=== PATIENT | female | born 2000 | race Caucasian/White ===

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

== ENCOUNTER 2022-06-28 10:00 | Emergency (ER) | payer OTHER, SELFPAY ==
[2022-06-28 10:06] VITALS: BP 128/74; PULSE 95; RESP 16; TEMP 36.2; O2SAT 99
--- NOTE | 2022-06-28 10:06 | ED.EAR ---
HPI - Ear Problem General Chief complaint: Ear Stated complaint: rt ear infection, dizziness Time Seen by Provider: 06/28/22 10:06 Source: patient and RN notes reviewed History of Present Illness HPI Narrative: Patient is a 22-year-old female, transitioning to male complaints of ear pain the . Patient's other doctor on the and was given Augmentin, steroids and nasal spray. Patient is the physician advised to go to a local urgent evaluation. Denies any recent fevers. States hearing. No other acute complaints. Acute distress noted. Patient aware of the plan of care Some parts of this dictation were generated by voice recognition software and may contain typographical and/or grammatical inaccuracies. Related Data Home Medications Medication Instructions Recorded Confirmed lamotrigine 100 mg tablet 200 mg PO DAILY 06/04/21 06/28/22 sertraline 100 mg tablet 200 mg PO DAILY 06/04/21 06/28/22 testosterone cypionate 200 mg/mL 200 mg IM .bi-weekly 06/04/21 06/28/22 intramuscular oil Allergies Allergy/AdvReac Type Severity Reaction Status Date / Time amphetamine AdvReac Severe seizures Verified 06/28/22 10:03 [From Adderall XR] dextroamphetamine AdvReac Severe seizures Verified 06/28/22 10:03 [From Adderall XR] Review of Systems Review of Systems: CONSTITUTIONAL: Denies fever, chills, or sweats. EYES: Denies visual changes, redness, or discharge. ENT: Denies rhinorrhea, congestion, sore throat. Reports of right ear pain with hearing loss CARDIOVASCULAR: Denies chest pain, palpitations, or edema. RESPIRATORY: Denies cough or dyspnea. GASTROINTESTINAL: Denies abdominal pain, nausea, vomiting, or diarrhea. GENITOURINARY: Denies dysuria or hematuria. SKIN: Denies rash or itching. MUSCULOSKELETAL: Denies back pain, joint pain, or myalgia. NEUROLOGIC: Denies headache, numbness, or weakness. All other systems reviewed are negative, except as documented in HPI. [facility] Past Medical History Medical History (Updated 06/28/22 @ 10:12 by HORACIO Cueto) Attention deficit disorder Exercise induced bronchospasm Major depressive disorder, recurrent, moderate MDD (major depressive disorder), single episode Family History Family History Father Diabetes mellitus Hypertension Mixed hyperlipidemia Sibling Patient's brother is in good health Social History Social History Social History: Single Smoking status: Never smoker Second hand tobacco smoke exposure: No Alcohol intake: never Substance use: never Substance use type: does not use Gender identity (if verbalized by the patient): Transgender Male Sexual Orientation (if Verbalized by the Patient): Lesbian, Dowling, or Homosexual Comments At the time of my signature, I reviewed and agree with the nursing past medical, surgical, social, and family history. There is no relevant family history pertinent to the patient complaint. Exam Narrative: GENERAL: This is a well-nourished, well-developed patient, in no apparent distress. HEAD: normocephalic, atraumatic. EYES: PERRL. Sclera clear/white. Vision is grossly intact. EARS: External ears normal, auditory canals clear and without drainage, mild effusion to the right TM. Bilateral TMs normal without perforation. Hearing grossly intact. NOSE: External nose normal with no obvious nasal discharge, nares without redness, no rhinorrhea. THROAT: Mucous membranes moist, posterior pharynx clear. NECK: Neck supple SKIN: warm, intact with no suspicious lesions or rash, good texture and turgor. NEURO: awake, alert, and oriented to person, place and time. There were no obvious focal neurologic abnormalities. EXTREMITIES: No clubbing, cyanosis, or edema. Course Course Level of Care: Express Care Visit Vital Signs Vital signs: Vital Signs Temperature 97.1 F L 06/28/22 10:06 Pulse Rate
== END 2022-06-28 10:20 | disposition home or self-care (01) ==
PROVIDERS: Emergency Provider Nurse Practitioner Family; PCP Family Medicine
DX: H92.01 Otalgia, right ear (principal); F32.9 Major depressive disorder, single episode, unspecified; J45.990 Exercise induced bronchospasm
CPT/HCPCS: 99213; G0463

== ENCOUNTER 2022-10-12 13:51 | Emergency (ER) | payer BC, SELFPAY ==
--- NOTE | ~2022-10-12 | CT_ITS ---
EXAMINATION: CT soft tissue neck w con DATE: 10/12/2022 15:32 INDICATION: Peritonsillar abscess. TECHNIQUE: Computed tomography (CT) of the neck was performed with 75 mL Omnipaque-350 intravenous co ntrast. Automated exposure control and iterative reconstruction technique were employed. The dose-elidia gth product was 521.95 mGy-cm. COMPARISON: None FINDINGS: The thyroid gland is unremarkable. The submandibular and parotid glands are symmetric. Bilateral upper anterior cervical chain lymphadenopathy, with heterogeneous enhancement. Enlarged heterogeneous ly enhancing adenoids. Enlarged heterogeneously enhancing bilateral palatine tonsils, without rim enh ancing fluid collection. The superior mediastinum is unremarkable. The airway is unremarkable. P arapharyngeal and pre-glottic fat planes are preserved. Normal enhancing neck arteries. The orbits are unremarkable. Visualized sinuses and mastoid air cells are well aerated. Lung parenchyma is clear. Normal bones. IMPRESSION: 1. Adenoid and bilateral pontine tonsillar enlargement, with heterogeneous enhancement. 2. Upper anterior cervical chain lymphadenopathy, with heterogeneous enhancement. 3. No defined rim-enhancing tonsillar fluid collection detected at this time. Reviewed, dictated and finalized at location K. IMPRESSION: 1. Adenoid and bilateral pontine tonsillar enlargement, with heterogeneous enha ncement. 2. Upper anterior cervical chain lymphadenopathy, with heterogeneous enhancemen t. 3. No defined rim-enhancing tonsillar fluid collection detected at this time.
[2022-10-12 14:01] VITALS: BP 125/79; PULSE 120; RESP 20; TEMP 37; O2SAT 100
[2022-10-12 14:41] LABS: Basophils Absolute Auto 0.1 K/mm3 (0.0-0.1); Basophils Percent Auto 0.3 % (0.2-1.2); Eosinophils Percent Auto 0.2 % (0-4.4); Hematocrit 42.7 % (42.0-52.0); Hemoglobin 14.5 g/dL (14.0-18.0); Immature Granulocyte Absolute 0.11 K/mm3 (0.00-0.031); Immature Granulocyte Percent A 0.6 % (0-0.5); Lymphocytes Absolute Auto 0.78 K/mm3 (0.9-3.2); Lymphocytes Percent Auto 4.2 % (18.3-44.2); Mean Corpuscular Hemoglobin 30.1 pg (26-34); Mean Corpuscular Volume 88.6 fl (80-100); Mean Platelet Volume 8.8 fl (7.4-10.4); Monocytes Absolute Auto 1.3 K/mm3 (0.1-0.6); Monocytes Percent Auto 6.8 % (2.6-8.5); Neutrophils Absolute Auto 16.2 K/mm3 (1.3-6.7); Neutrophils Percent Auto 87.9 % (45.5-73.1); Platelet Count Result 230 k/mm3 (150-375); Red Blood Count 4.82 M/mm3 (4.6-6.20); White Blood Count 18.4 K/mm3 (4.5-10.0)
--- NOTE | 2022-10-12 14:43 | ED.DENTAL ---
HPI - Dental/Oral General Chief complaint: Dental/Oral Stated complaint: right side tonsillar abscess Time Seen by Provider: 10/12/22 14:17 Source: patient Mode of arrival: ambulatory Limitations: no limitations History of Present Illness HPI Narrative: This is a 22 year old female to male transgender person who presents to the ER for possible peritonsillar abscess. Was treated with course of Augmentin for strep throat which he has finished. Reports yesterday he had return of symptoms. He was seen by his PCP again today and sent for further evaluation. Reports worsening swelling especially on the right side of his throat which is making it difficult for him to swallow. Denies fever. Related Data Home Medications Medication Instructions Recorded Confirmed lamotrigine 100 mg tablet 200 mg PO DAILY 06/04/21 09/27/22 sertraline 100 mg tablet 200 mg PO DAILY 06/04/21 09/27/22 testosterone cypionate 200 mg/mL 200 mg IM .bi-weekly 06/04/21 09/27/22 intramuscular oil Allergies Allergy/AdvReac Type Severity Reaction Status Date / Time amphetamine AdvReac Severe seizures Verified 10/12/22 13:52 [From Adderall XR] dextroamphetamine AdvReac Severe seizures Verified 10/12/22 13:52 [From Adderall XR] Review of Systems Review of Systems: CONSTITUTIONAL: Denies fever ENT: Reports sore throat RESPIRATORY: Denies cough All systems reviewed & are unremarkable except as noted in HPI and below PMFSH Past Medical History Medical History (Updated 10/12/22 @ 16:20 by Anna Smith PA-C) Attention deficit disorder Exercise induced bronchospasm Major depressive disorder, recurrent, moderate MDD (major depressive disorder), single episode Family History Family History Father Diabetes mellitus Hypertension Mixed hyperlipidemia Sibling Patient's brother is in good health Social History Social History Social History: Single Smoking status: Never smoker Second hand tobacco smoke exposure: No Alcohol intake: never Substance use: never Substance use type: does not use Living arrangements: with family Occupation/Education: occupation Gender identity (if verbalized by the patient): Transgender Male Sexual Orientation (if Verbalized by the Patient): Lesbian, Dowling, or Homosexual Exam Narrative: GENERAL: Well-appearing, well-nourished, and in no acute distress. HEAD: Normocephalic, atraumatic. EYES: EOMI. ENT: Nares clear, no rhinorrhea or epistaxis. Mucous membranes moist. Oropharynx without tonsillar hypertrophy exudate or other lesions. Bilateral TMs pearly garsia non-bulging. Bilateral moderate tonsillar edema and erythema (R>L), uvula is mildly deviated. No trismus NECK: Supple. Tender anterior cervical adenopathy CHEST: Clear to auscultation. No respiratory distress. No wheezes rales or rhonchi HEART: Regular rate and rhythm. No murmur heard. Normal peripheral pulses. EXTREMITIES: Normal range of motion. No edema. SKIN: Warm, dry, no rash. NEURO: No focal deficits. Alert and oriented x3. PSYCH: Normal mood and affect Course Course Emergency Course: Patient and family updated on workup and agree with plan of care Vital Signs Vital signs: Vital Signs Temperature 98.6 F 10/12/22 14:01 Pulse Rate 120 H 10/12/22 14:01 Respiratory Rate 20 10/12/22 14:01 Blood Pressure 125/79 10/12/22 14:01 Pulse Oximetry 100 10/12/22 14:01 Oxygen Delivery Room Air 10/12/22 14:01 Temperature 98.6 F 10/12/22 14:01 Pulse Rate 120 H 10/12/22 14:01 Respiratory Rate 20 10/12/22 14:01 Blood Pressure 125/79 10/12/22 14:01 Pulse Oximetry 100 10/12/22 14:01 Oxygen Delivery Room Air 10/12/22 14:01 MDM - Dental/Oral MDM Narrative Medical decision making narrative: Patient presents to the emergency department for concern for possible peritonsillar abscess. Tach
[2022-10-12 14:54] LABS: Anion Gap 7 mmol/L (8-16); Blood Urea Nitrogen 10 mg/dL (9-20); Calcium 9.1 mg/dL (8.4-10.2); Carbon Dioxide 28 mmol/L (22-30); Chloride 104 mmol/L (98-107); Estimated CRCL calculation 150 ml/min; Estimated Glomerular Filt Rate > 60; Glucose 111 mg/dL (65-110); Sodium 139 mmol/L (137-145)
[2022-10-12] MEDS: SODIUM CHLORIDE 0.9% IV 500 ML 999 ML IV CONT (15:17)
[2022-10-12] MEDS: KETOROLAC 15 MG/ML VIAL (*BKC) IV PUSH (15:18)
[2022-10-12] MEDS: CLINDAMYCIN HCL 150 MG CAP 300 MG PO (16:00)
[2022-10-12 16:25] VITALS: BP 109/66; PULSE 100; RESP 16; O2SAT 96
== END 2022-10-12 16:35 | disposition home or self-care (01) ==
PROVIDERS: Emergency Provider Physician Assistant; PCP Family Medicine
DX: J03.90 Acute tonsillitis, unspecified (principal); F32.A Depression, unspecified
CPT/HCPCS: 36415; 70491; 80048; 85025; 96361; 96374; 96375; 99284; A9270; J1100; J1885; J7040; Q9967

== ENCOUNTER 2022-11-03 15:14 | Outpatient (CLI) | payer BC, SELFPAY ==
--- NOTE | ~2022-11-03 | XR_ITS ---
EXAMINATION: XR chest 2V 11/03/2022 15:37 INDICATION: Pleurodynia PROCEDURE: 2 view chest COMPARISON: No prior studies for comparison. FINDINGS: The lungs are clear. The cardiomediastinal silhouette is within normal limits. There are no pleural effusions. There is no pneumothorax suspected. IMPRESSION: 1: NO ACUTE CARDIOPULMONARY DISEASE. Reviewed, dictated and finalized at location L.
== END 2022-11-03 15:15 | disposition home or self-care (01) ==
LOC: ANHIMG 15:23
PROVIDERS: PCP Family Medicine; Visit Provider Physician Assistant
DX: R07.81 Pleurodynia (principal)
CPT/HCPCS: 71046

== ENCOUNTER 2022-11-15 00:39 | Day surgery (SDC) | payer BC, SELFPAY ==
[2022-11-08 11:50] VITALS: BMI 24.0
--- NOTE | 2022-11-08 11:54 | PC.NURSE ---
Report to the Outpatient Waiting Room, entrance under the green pavilion located off [facility], at time 1315 on date 11/15/22. Planned Procedure Time: 1515. Time changes happen often and if your time is changed the preop area will call you the afternoon before. - You and your visitor will be asked to self-screen and do not enter if you have any COVID symptoms. - A mask is optional within the hospital at this time. Patients may have clear liquids (water, carbonated beverages, clear teas, apple juice) until 3 hours prior to surgery with a maximum of 20 ounces. - No food from midnight until time of surgery Take the following medications with a SIP of water the morning of surgery: INHALER IF NEEDED, CLINDAMYCIN, LAMOTRIGINE, SERTRALINE DO NOT STOP ANY OF YOUR OTHER PRESCRIPTION MEDICATIONS PRIOR TO SURGERY EXCEPT THE FOLLOWING Medications to discontinue per physician: IBUPROFEN Date to take last dose: PER DR. BYNUM Please no make-up, nail vincentian, hairspray, perfume, deodorant, or body powder the day of surgery. No jewelry (including any body piercings) or valuables the day of surgery, leave them at home. Please take a shower or bath the night before, or the morning of, surgery with an antibacterial soap. Wear comfortable, loose fitting clothing. - Jewelry must be removed prior to entering the operating room. Rings and piercings that are not removed may be cut off. - The hospital will not accept responsibility for valuables. - Please leave all valuables, including medications, at home the day of surgery. If you are going home after surgery, a licensed interstate bus driver must drive you home. - NO public transportation without another adult if you receive anesthesia. - We recommend that an adult stay with you for 24 hours following discharge. - We also recommend that you do not drive, make important decision, drink alcoholic beverages, or take any drugs that were not prescribed by your health care provider for at least 24 hours after your discharge time. Follow any additional instructions given to you from your surgeon. If you or anyone in your household have experienced Covid symptoms in the past week, please notify your surgeon or the nurse liaison at the phone number below for possible testing. Telephone instructions given to PT - KINDRA VERGARA and asked if any additional questions and then verbalized understanding. Patient advised to call surgeon office or pre surgery nurse liaison [phone] if any additional questions.
--- NOTE | 2022-11-14 13:02 | WPDANESEPPF ---
Anes - Initial Pre Proc Eval Procedure: Operation Date: 11/15/22 14:15 Proposed Procedures p Tonsillectomy And Adenoidectomy - Narendra Floyd MD Date/Time: 11/14/22 13:02 Surgeon: Narendra Floyd MD Pre Op Diagnosis: hypertrophic tonsils and adenoids Patient Data Age: 22 Gender: F Height: 1.78 m Weight: 76.2 kg Allergies Allergy/AdvReac Type Severity Reaction Status Date / Time amphetamine AdvReac Severe seizures Verified 11/15/22 12:45 [From Adderall XR] dextroamphetamine AdvReac Severe seizures Verified 11/15/22 12:45 [From Adderall XR] Home Medications Medication Instructions Recorded Confirmed Type lamotrigine 100 mg tablet 200 mg PO DAILY 06/04/21 11/08/22 History sertraline 100 mg tablet 200 mg PO DAILY 06/04/21 11/15/22 History testosterone cypionate 200 mg/mL 200 mg IM .bi-weekly 06/04/21 11/08/22 History intramuscular oil albuterol sulfate 90 mcg/actuation 1 puff inhalation Q4H PRN 09/01/21 11/08/22 Rx aerosol inhaler (ProAir HFA) shortness of breath or wheezing #8.5 grams clindamycin HCl 300 mg capsule 300 mg PO Q8H 10 days #30 caps 11/03/22 11/08/22 Rx ibuprofen 400 mg tablet 400 mg PO Q6H PRN Pain 11/08/22 11/15/22 History Patient hx anesthesia problems: none Family hx anesthesia problems: none Results Review: All pre-operative results and documents have been reviewed as part of the pre-operative evaluation. [facility] Past Medical History Medical History (Updated 11/14/22 @ 13:03 by Max Small DO) Attention deficit disorder Exercise induced bronchospasm Major depressive disorder, recurrent, moderate MDD (major depressive disorder), single episode Seizure last in october 2022 Tachycardia Family History Family History Father Diabetes mellitus Hypertension Mixed hyperlipidemia Sibling Patient's brother is in good health Social History Social History Social History: Single Smoking status: Never smoker Second hand tobacco smoke exposure: No Alcohol intake: never Substance use: never Substance use type: does not use Lack of Transportation: No Lack of Food: Never True Current Housing: I Have Housing Concerned About Future Housing: No Difficulty Paying Gas/Electric Bills: No Difficulty Paying for Meds: No Currently Unemployed: No Education: High School Diploma/GED Difficulty w/ Childcare or Family Care: No Living arrangements: with family Occupation/Education: occupation Gender identity (if verbalized by the patient): Transgender Male Sexual Orientation (if Verbalized by the Patient): Lesbian, Dowling, or Homosexual Spiritual care concerns: No Anes - Eval Final PreProcedure Day of Procedure 11/14/22 13:02 Patient weight: normal Heart: regular rate and rhythm Lungs: clear to auscultation and normal air movement Airway: Mallampati scale class II Neurological: alert and oriented Last oral intake: >/= 8 hours ASA classification: III Emergent: no Anesthetic plan: proceed Anesthesia type and monitoring: general ETT and standard monitoring Results Review: All pre-operative results and documents have been reviewed as part of the pre-operative evaluation. Informed Consent: The patient's anesthetic plan and its attendant risks and benefits were discussed with the patient/family/POA. Questions were solicited and answers provided to the satisfaction of the patient/family/POA.
--- NOTE | 2022-11-14 19:25 | PM.IMHP ---
H&P: HPI History of Present Illness Date/Time: 11/14/22 19:25 Chief Complaint: recurrent tonsillitis sleep disordered breathing tonsillar hypertrophy adenoid hypertrophy snoring Narrative: planned surgical procedure Review of Systems Review of Systems: All systems reviewed & are unremarkable except as noted in HPI and below PMFSH Past Medical History Medical History (Updated 11/14/22 @ 13:03 by Max Small DO) Attention deficit disorder Exercise induced bronchospasm Major depressive disorder, recurrent, moderate MDD (major depressive disorder), single episode Seizure last in october 2022 Tachycardia Family History Family History Father Diabetes mellitus Hypertension Mixed hyperlipidemia Sibling Patient's brother is in good health Social History Social History Social History: Single Smoking status: Never smoker Second hand tobacco smoke exposure: No Alcohol intake: never Substance use: never Substance use type: does not use Lack of Transportation: No Lack of Food: Never True Current Housing: I Have Housing Concerned About Future Housing: No Difficulty Paying Gas/Electric Bills: No Difficulty Paying for Meds: No Currently Unemployed: No Education: High School Diploma/GED Difficulty w/ Childcare or Family Care: No Living arrangements: with family Occupation/Education: occupation Gender identity (if verbalized by the patient): Transgender Male Sexual Orientation (if Verbalized by the Patient): Lesbian, Dowling, or Homosexual Spiritual care concerns: No Meds Home Medications and Allergies Home Medications Medication Instructions Recorded Confirmed Type lamotrigine 100 mg tablet 200 mg PO DAILY 06/04/21 11/08/22 History sertraline 100 mg tablet 200 mg PO DAILY 06/04/21 11/08/22 History testosterone cypionate 200 mg/mL 200 mg IM .bi-weekly 06/04/21 11/08/22 History intramuscular oil albuterol sulfate 90 mcg/actuation 1 puff inhalation Q4H PRN 09/01/21 11/08/22 Rx aerosol inhaler (ProAir HFA) shortness of breath or wheezing #8.5 grams clindamycin HCl 300 mg capsule 300 mg PO Q8H 10 days #30 caps 11/03/22 11/08/22 Rx ibuprofen 400 mg tablet 400 mg PO Q6H PRN Pain 11/08/22 11/08/22 History Allergies Allergy/AdvReac Type Severity Reaction Status Date / Time amphetamine AdvReac Severe seizures Verified 11/08/22 11:48 [From Adderall XR] dextroamphetamine AdvReac Severe seizures Verified 11/08/22 11:48 [From Adderall XR] Exam Narrative: large tonsils large adenoids Assessment and Plan Assessment and plan (1) Adenoid hypertrophy: Code(s): J35.2 - Hypertrophy of adenoids Status: Acute Assessment and Plan: Plan tonsillectomy adenoidectomy risks discussed including change in swallow need for further procedures damage to any structure above the clavicles bleeding infection postoperative bleeding 3-5% need for time off work need for time off school need for narcotic use risks of narcotic use damage to any structure anesthesia above a clavicles during intubation maintenance of anesthesia.? Damage to dentition change in taste change in swallow abnormal sensations for months.? Patient voiced understanding of these risks and agreed. (2) Tonsillar hypertrophy: Code(s): J35.1 - Hypertrophy of tonsils Status: Acute (3) Recurrent tonsillitis: Code(s): J03.91 - Acute recurrent tonsillitis, unspecified Status: Acute (4) Snoring: Code(s): R06.83 - Snoring Status: Acute
[2022-11-15] VITALS (7 sets, daily range): BP systolic 102–126; BP diastolic 57–87; PULSE 74–95; RESP 12–17; TEMP 36.2–36.7; O2SAT 98–100; BMI 22.9
--- NOTE | 2022-11-15 07:19 | WPDHPUPDATE1 ---
History and Physical Update Update Date/Time: 11/15/22 07:19 History and Physical has been reviewed, including an updated exam of the patient. There are NO changes in the patient's condition. Risks, benefits, and alternatives have been discussed and questions answered. Patient agrees to proceed with procedure.
[2022-11-15] MEDS: LACTATED RINGERS 1,000 ML 30 ML IV CONT ×2 (12:55→14:07)
[2022-11-15] MEDS: ACETAMINOPHEN 500 MG TABLET 1000 MG PO (12:57)
--- NOTE | 2022-11-15 14:25 | W.PM.PROC2 ---
Procedure Note - Detailed Date of Procedure 11/15/22 Pre-op Diagnosis hypertrophic tonsils and adenoids Post-op Diagnosis Same Procedure Performed Tonsillectomy adenoidectomy Surgeon Narendra Floyd MD Anesthesia General Indications see above Findings chronic appearing tonsils chronic tearing adenoids as well Description of Procedure patient identified consent verified in the preoperative holding area. Patient brought operating. Time-out performed. General anesthesia induced endotracheal tube secured. Patient prepped draped position procedure confirmed 2nd time-out performed. McIvor mouth gag inserted revealing tonsillar about 2 to 3+. Removed in the extracapsular plane bilaterally. Removed using Bovie electrocautery setting of 10 any bleeding controlled Bovie suction electrocautery setting of 12. In between tonsils McIvor mouth gag lowered to allow blood flow to return to the tongue. Following tonsillectomy read of the McIvor mouth gag was lowered for 30 seconds reopened to reveal no further bleeding. Red rubber catheters placed transnasally suspended anteriorly revealing adenoids Padre per 2+ but appeared infected purulent chronic appearing they were bovied using Bovie suction electrocautery at a setting of 30. No bleeding. Red rubber catheters removed. McIvor mouth gag again lowered for 30 seconds reopened to reveal no bleeding. McIvor mouth gag removed. Total blood loss less than 3 cc. Care the patient given Anesthesiology I performed all dictated portions of the procedure. There were no complications. Patient taken to PACU. Estimated Blood Loss 3 Drains No Packing No Pathology Yes Complications No immediate complications Condition Stable Disposition PACU [facility] Billing Surgery - Charge Forward: Surgery Billing
== END 2022-11-15 16:10 | disposition home or self-care (01) ==
PROVIDERS: PCP Family Medicine; Visit Provider Otolaryngology
PROC: (CPT 42821; principal; 2022-11-15 14:15)
DX: J35.3 Hypertrophy of tonsils with hypertrophy of adenoids (principal); R06.83 Snoring; F98.8 Other specified behavioral and emotional disorders with onset usually occurring in childhood and adolescence; F33.1 Major depressive disorder, recurrent, moderate; G40.909 Epilepsy, unspecified, not intractable, without status epilepticus; Z79.51 Long term (current) use of inhaled steroids
CPT/HCPCS: 42821; 88302; A9270; J0330; J1100; J2250; J2405; J2704; J3010; J7120

== ENCOUNTER 2022-11-16 00:15 | Emergency (ER) | payer BC, SELFPAY ==
[2022-11-16 00:24] VITALS: BP 120/70; PULSE 86; RESP 14; TEMP 36.7; O2SAT 97
--- NOTE | 2022-11-16 00:58 | PC.NURSE ---
dr holliday with patient
--- NOTE | 2022-11-16 01:04 | ED.GENADULT ---
HPI - General Adult General Chief complaint: Unspecified <ANI Mcmullen Last Filed: 11/16/22 01:48> Stated complaint: post op problem <ANI Mcmullen Last Filed: 11/16/22 01:48> Time Seen by Provider: 11/16/22 00:41 <ANI Mcmullen Last Filed: 11/16/22 01:48> Source: patient and old records reviewed <ANI Mcmullen Last Filed: 11/16/22 01:48> Mode of arrival: ambulatory <ANI cMmullen Last Filed: 11/16/22 01:48> Limitations: no limitations <ANI Mcmullen Last Filed: 11/16/22 01:48> History of Present Illness HPI narrative: Patient is a 22 y/o transgender who identifies as a male who presents to the ED with report of post operative bleeding. Patient had a tonsillectomy and adenoidectomy performed by Dr. Floyd on 11/15. Patient reports he woke up around 9:30 PM this evening and felt like he was choking. He states he felt like he had something behind his uvula that needed to come out. He began coughing and noticed he was coughing out blood. He states it felt like it came from deep in his throat and filled the toilet bowl. He called Dr. Floyd's office and was referred to the ED for further evaluation. Patient otherwise denies any issues drinking fluids yesterday. Denies nausea. Denies fever. Denies difficulty breathing. <ANI Mcmullen Last Filed: 11/16/22 01:48> Related Data Home medications: Home Medications Medication Instructions Recorded Confirmed lamotrigine 100 mg tablet 200 mg PO DAILY 06/04/21 11/08/22 sertraline 100 mg tablet 200 mg PO DAILY 06/04/21 11/15/22 testosterone cypionate 200 mg/mL 200 mg IM .bi-weekly 06/04/21 11/08/22 intramuscular oil ibuprofen 400 mg tablet 400 mg PO Q6H PRN Pain 11/08/22 11/15/22 <Celina Price PA-C - Last Filed: 11/16/22 01:48> Allergies/adverse reactions: Allergies Allergy/AdvReac Type Severity Reaction Status Date / Time amphetamine AdvReac Severe seizures Verified 11/15/22 12:45 [From Adderall XR] dextroamphetamine AdvReac Severe seizures Verified 11/15/22 12:45 [From Adderall XR] <Celina Price PA-C - Last Filed: 11/16/22 01:48> Review of Systems Review of Systems: CONSTITUTIONAL: Denies fever, chills, or sweats. ENT: See HPI. CARDIOVASCULAR: Denies chest pain. RESPIRATORY: See HPI. GASTROINTESTINAL: Denies abdominal pain, nausea, vomiting. <Celina Price PA-C - Last Filed: 11/16/22 01:48> All systems reviewed & are unremarkable except as noted in HPI and below <Celina Price PA-C - Last Filed: 11/16/22 01:48> [facility] Past Medical History Medical History: Medical History Attention deficit disorder Exercise induced bronchospasm Major depressive disorder, recurrent, moderate MDD (major depressive disorder), single episode Seizure last in october 2022 Tachycardia <Celina Price PA-C - Last Filed: 11/16/22 01:48> Surgical History Surgical History: Surgical History S/P tonsillectomy and adenoidectomy <Celina Price PA-C - Last Filed: 11/16/22 01:48> Family History Family History: Family History Father Diabetes mellitus Hypertension Mixed hyperlipidemia Sibling Patient's brother is in good health <Celina Price PA-C - Last Filed: 11/16/22 01:48> Social History Social History: Social History Social History: Single Smoking status: Never smoker Second hand tobacco smoke exposure: No Alcohol intake: never Substance use: never Substance use type: does not use Lack of Transportation: No Lack of Food: Never True Current Housing: I Have Housing Concerned A
[2022-11-16] MEDS: BENZOCAINE/TETRACAINE SPRAY (*SP) 56 ML AEROSOL 1 SPRAY (01:12)
[2022-11-16] MEDS: SILVER NITRATE (*SP) STICK 2 EACH (01:12)
--- NOTE | 2022-11-16 01:19 | WPDPROCEDUR ---
Procedures Other Procedures Procedure 1: Other Procedure: Control of post tonsillectomy hemorrhage all the consents obtained. Bilateral tonsillar fossa appear normal no clot small areas of erythema perhaps tick moderate recent bleed bilaterally left superior more than anywhere Cetacaine a plate biopsy to Je Cetacaine applied bilaterally. Silver nitrate utilized to cauterize these areas. Patient tolerated the procedure well. No bleeding following procedure
--- NOTE | 2022-11-16 01:20 | WPDCN ---
Assessment and Plan Assessment and plan (1) Post-tonsillectomy hemorrhage: Code(s): J95.830 - Postprocedural hemorrhage of a respiratory system organ or structure following a respiratory system procedure Status: Acute Assessment and Plan: discussed with patient how to handle any further bleeding patient should call me with any bleeding. Bleeding controlled in the ER with silver nitrate. HPI Data of Consult Date/Time: 11/16/22 01:20 Primary Care Provider: Priscila Dotson MD Consult Narrative Narrative: Shobha Hilton is a 22 year old male status post T&A yesterday. Reports bleeding throughout the night coughing red blood. Presents to me for further evaluation and treatment. Review of Systems Review of Systems: All systems reviewed & are unremarkable except as noted in HPI and below PMFSH Past Medical History Medical History (Updated 11/16/22 @ 01:21 by Narendra Floyd MD) Attention deficit disorder Exercise induced bronchospasm Major depressive disorder, recurrent, moderate MDD (major depressive disorder), single episode Seizure last in october 2022 Tachycardia Family History Family History Father Diabetes mellitus Hypertension Mixed hyperlipidemia Sibling Patient's brother is in good health Social History Social History Social History: Single Smoking status: Never smoker Second hand tobacco smoke exposure: No Alcohol intake: never Substance use: never Substance use type: does not use Lack of Transportation: No Lack of Food: Never True Current Housing: I Have Housing Concerned About Future Housing: No Difficulty Paying Gas/Electric Bills: No Difficulty Paying for Meds: No Currently Unemployed: No Education: High School Diploma/GED Difficulty w/ Childcare or Family Care: No Living arrangements: with family Occupation/Education: occupation Gender identity (if verbalized by the patient): Transgender Male Sexual Orientation (if Verbalized by the Patient): Lesbian, Dowling, or Homosexual Spiritual care concerns: No Meds Home Medications and Allergies Home Medications Medication Instructions Recorded Confirmed Type lamotrigine 100 mg tablet 200 mg PO DAILY 06/04/21 11/08/22 History sertraline 100 mg tablet 200 mg PO DAILY 06/04/21 11/15/22 History testosterone cypionate 200 mg/mL 200 mg IM .bi-weekly 06/04/21 11/08/22 History intramuscular oil albuterol sulfate 90 mcg/actuation 1 puff inhalation Q4H PRN 09/01/21 11/08/22 Rx aerosol inhaler (ProAir HFA) shortness of breath or wheezing #8.5 grams clindamycin HCl 300 mg capsule 300 mg PO Q8H 10 days #30 caps 11/03/22 11/08/22 Rx ibuprofen 400 mg tablet 400 mg PO Q6H PRN Pain 11/08/22 11/15/22 History oxycodone 5 mg tablet 5 mg PO Q12H PRN pain #20 tabs 11/15/22 Rx Allergies Allergy/AdvReac Type Severity Reaction Status Date / Time amphetamine AdvReac Severe seizures Verified 11/15/22 12:45 [From Adderall XR] dextroamphetamine AdvReac Severe seizures Verified 11/15/22 12:45 [From Adderall XR] Vital Signs Vital Signs - 24 hr 11/16/22 00:24 Temperature 36.7 C Pulse Rate 86 Respiratory Rate 14 Blood Pressure 120/70 Pulse Oximetry 97 Oxygen Delivery Room Air Exam Narrative: Small areas perhaps stigmata of recent bleed bilaterally left superior more than anywhere else. See procedure note areas were cauterized with silver nitrate. Patient tolerated the procedure really well.
== END 2022-11-16 01:44 | disposition home or self-care (01) ==
PROVIDERS: Emergency Provider Physician Assistant; PCP Family Medicine
DX: J95.830 Postprocedural hemorrhage of a respiratory system organ or structure following a respiratory system procedure (principal); F98.8 Other specified behavioral and emotional disorders with onset usually occurring in childhood and adolescence; F32.9 Major depressive disorder, single episode, unspecified
CPT/HCPCS: 42960; 99283; A9270

== ENCOUNTER 2023-03-03 10:43 | Outpatient (CLI) | payer BC, SELFPAY ==
[2023-03-03 11:11] LABS: Basophils Percent Auto 0.5 % (0.2-1.2); Eosinophils Absolute Auto 0.2 K/mm3 (0-0.3); Eosinophils Percent Auto 1.8 % (0-4.4); Hematocrit 39.4 % (37.0-47.0); Hemoglobin 13.2 g/dL (12.0-15.0); Immature Granulocyte Absolute 0.04 K/mm3 (0.00-0.031); Immature Granulocyte Percent A 0.5 % (0-0.5); Lymphocytes Absolute Auto 1.29 K/mm3 (0.9-3.2); Lymphocytes Percent Auto 15.1 % (18.3-44.2); Mean Corpuscular HGB Conc 33.5 g/dl (32-36); Mean Corpuscular Hemoglobin 29.8 pg (26-34); Mean Corpuscular Volume 88.9 fl (80-100); Mean Platelet Volume 9.6 fl (7.4-10.4); Monocytes Percent Auto 11.5 % (2.6-8.5); Neutrophils Percent Auto 70.6 % (45.5-73.1); Platelet Count Result 214 k/mm3 (150-375); Red Blood Count 4.43 M/mm3 (4.2-5.4); Red Cell Distribution Width 12.6 % (11.5-14.5); White Blood Count 8.5 K/mm3 (4.5-10.0)
[2023-03-03 11:22] LABS: Alanine Aminotransferase 37 U/L (6-35); Albumin Level 4.3 g/dL (3.5-5.1); Alkaline Phosphatase 49 U/L (38-126); Anion Gap 5 mmol/L (8-16); Aspartate Amino Transferase 42 U/L (14-36); Bilirubin,Total 0.4 mg/dL (0.2-1.3); Blood Urea Nitrogen 11 mg/dL (7-17); Calcium 8.9 mg/dL (8.4-10.2); Carbon Dioxide 27 mmol/L (22-30); Chloride 102 mmol/L (98-107); Estimated Glomerular Filt Rate > 60; Glucose 91 mg/dL (65-110); Potassium 3.9 mmol/L (3.4-5.0); Sodium 134 mmol/L (137-145)
== END 2023-03-03 10:44 | disposition home or self-care (01) ==
LOC: ANHLAB 10:45
PROVIDERS: PCP Family Medicine; Visit Provider Physician Assistant
DX: R30.0 Dysuria (principal)
CPT/HCPCS: 36415; 80053; 85025

== ENCOUNTER 2024-01-31 18:41 | Emergency (ER) | payer OTHER, SELFPAY ==
--- NOTE | 2024-01-31 18:48 | ED.URI ---
HPI - URI/Sore Throat General Chief Complaint: Upper Respiratory Infection Stated Complaint: Heart Pain/Headache/Fever Time Seen by Provider: 01/31/24 18:48 Source: patient Mode of arrival: ambulatory Limitations: no limitations History of Present Illness HPI Narrative: 23-year-old transgender, identifying as male, presents with complaint of fatigue, body aches, chills, fever for the past 3 days. Patient reports intermittently feels like heart is racing. Denies chest pain, shortness breath. Patient took ibuprofen prior to arrival to treat fever. States fever was 104 F. Eating and drinking normally. Denies urinary symptoms. No cough, congestion or sore throat. All systems reviewed and negative except as noted above. Related Data Home Medications Medication Instructions Recorded Confirmed testosterone cypionate 200 mg/mL 200 mg IM .bi-weekly 06/04/21 11/30/23 intramuscular oil trazodone 50 mg tablet 50 mg PO QHS sleep 01/31/24 Allergies Allergy/AdvReac Type Severity Reaction Status Date / Time amphetamine Allergy Severe seizures Verified 01/31/24 18:52 [From Adderall XR] dextroamphetamine Allergy Severe seizures Verified 01/31/24 18:52 [From Adderall XR] Review of Systems Review of Systems: CONSTITUTIONAL: Reports fatigue, fever, chills, or sweats. EYES: Denies visual changes, redness, or discharge. ENT: Denies rhinorrhea, congestion, sore throat, or otalgia. CARDIOVASCULAR: Denies chest pain, palpitations, or edema. RESPIRATORY: Denies cough or dyspnea. GASTROINTESTINAL: Denies abdominal pain, nausea, vomiting, or diarrhea. GENITOURINARY: Denies dysuria or hematuria. SKIN: Denies rash or itching. MUSCULOSKELETAL: Denies back pain, joint pain. Reports myalgia. NEUROLOGIC: reports headache. Denies numbness, or weakness. PSYCHIATRIC: Denies anxiety or depression. All other systems reviewed are negative, except as documented in HPI. [facility] Past Medical History Medical History Attention deficit disorder Exercise induced bronchospasm Major depressive disorder, recurrent, moderate MDD (major depressive disorder), single episode Seizure last in october 2022 Tachycardia Surgical History Surgical History S/P tonsillectomy and adenoidectomy Family History Family History Father Diabetes mellitus Hypertension Mixed hyperlipidemia Sibling Patient's brother is in good health Social History Social History Social History: Single Smoking status: Never smoker Second hand tobacco smoke exposure: No Alcohol intake: never Substance use: never Substance use type: does not use Lack of Transportation: No Lack of Food: Never True Current Housing: I Have Housing Concerned About Future Housing: No Difficulty Paying Gas/Electric Bills: No Difficulty Paying for Meds: No Currently Unemployed: No Education: High School Diploma/GED Difficulty w/ Childcare or Family Care: No Living arrangements: with family Occupation/Education: occupation Gender identity (if verbalized by the patient): Transgender Male Sexual Orientation (if Verbalized by the Patient): Lesbian, Dowling, or Homosexual Spiritual care concerns: No Comments At time of signature, agree with nursing past medical, surgical, social and family history. There is no relevant family history pertinent to the presenting complaint. Exam Narrative: GENERAL: This is a well-nourished, well-developed patient, in no apparent distress. HEAD: normocephalic, atraumatic. EYES: PERRL. Sclera clear/white. Vision is grossly intact. EARS: External ears normal, auditory canals clear and without drainage, TMs normal without perforation. Hearing grossly intact. NOSE: External nose normal with no obvious nasal discha
[2024-01-31 18:50] VITALS: BP 102/61; PULSE 108; RESP 18; TEMP 36.5; O2SAT 99
[2024-01-31 18:53] VITALS: BP 102/61; PULSE 108; RESP 18; TEMP 36.5; O2SAT 99
--- NOTE | 2024-01-31 18:57 | ECG_ITS ---
Test Date: 2024-01-31 19:10:19 Measurements Intervals [place] Rate: 103 P: 67 MS: 150 QRS: 69 QRSD: 84 T: 61 QT: 319 QTc: 418 Interpretive Statements SINUS TACHYCARDIA POSSIBLE LEFT ATRIAL ENLARGEMENT POSSIBLE RIGHT VENTRICULAR CONDUCTION DELAY BORDERLINE ECG No previous ECG available for comparison Electronically Signed On 02-01-2024 07:02:16 CDT by Pipe Nino D.O.
[2024-01-31 19:16] LABS: EDINFLUASCREEN Negative; EDINFLUBSCREEN Negative
== END 2024-01-31 19:19 | disposition home or self-care (01) ==
PROVIDERS: Emergency Provider Nurse Practitioner Family; PCP Family Medicine
DX: B34.9 Viral infection, unspecified (principal); Z20.822 Contact with and (suspected) exposure to COVID-19; F32.9 Major depressive disorder, single episode, unspecified
CPT/HCPCS: 87426; 87804; 93005; 99213; G0463

== ENCOUNTER 2024-02-01 13:54 | Outpatient (CLI) | payer OTHER, SELFPAY ==
[2024-02-01 15:17] LABS: Basophils Absolute Auto 0.1 K/mm3 (0.0-0.1); Basophils Percent Auto 0.4 % (0.2-1.2); Eosinophils Percent Auto 0.1 % (0-4.4); Hematocrit 38.3 % (37.0-47.0); Hemoglobin 13.2 g/dL (12.0-15.0); Immature Granulocyte Absolute 0.14 K/mm3 (0.00-0.031); Immature Granulocyte Percent A 0.7 % (0-0.5); Lymphocytes Absolute Auto 1.08 K/mm3 (0.9-3.2); Lymphocytes Percent Auto 5.5 % (18.3-44.2); Mean Corpuscular HGB Conc 34.5 g/dl (32-36); Mean Corpuscular Hemoglobin 30.9 pg (26-34); Mean Corpuscular Volume 89.7 fl (80-100); Mean Platelet Volume 10.3 fl (7.4-10.4); Monocytes Absolute Auto 2.2 K/mm3 (0.1-0.6); Monocytes Percent Auto 11.4 % (2.6-8.5); Neutrophils Absolute Auto 16.1 K/mm3 (1.3-6.7); Neutrophils Percent Auto 81.9 % (45.5-73.1); Platelet Count Result 190 k/mm3 (150-375); Red Blood Count 4.27 M/mm3 (4.2-5.4); Red Cell Distribution Width 12.3 % (11.5-14.5); White Blood Count 19.6 K/mm3 (4.5-10.0)
[2024-02-01 16:20] LABS: Alanine Aminotransferase 58 U/L (6-35); Albumin Level 4.5 g/dL (3.5-5.1); Alkaline Phosphatase 82 U/L (38-126); Anion Gap 12 mmol/L (4-12); Aspartate Amino Transferase 58 U/L (14-36); Bilirubin,Total 0.7 mg/dL (0.2-1.3); Blood Urea Nitrogen 10 mg/dL (7-17); Calcium 8.9 mg/dL (8.4-10.2); Carbon Dioxide 24 mmol/L (22-30); Chloride 98 mmol/L (98-107); Estimated Glomerular Filt Rate > 60; Glucose 111 mg/dL (65-110); Potassium 3.6 mmol/L (3.4-5.0); Sodium 134 mmol/L (137-145)
== END 2024-02-01 13:55 | disposition home or self-care (01) ==
LOC: ANHLAB 13:57
PROVIDERS: Student in an Organized Health Care Education/Training Program; PCP Family Medicine; Visit Provider Family Medicine
DX: R00.0 Tachycardia, unspecified (principal)
CPT/HCPCS: 36415; 80053; 84443; 85025

== ENCOUNTER 2024-04-03 15:33 | Outpatient (CLI) | payer OTHER, SELFPAY ==
--- NOTE | ~2024-04-03 | XR_ITS ---
XR abdomen obstructive series Ordering provider: Ladi Sparks PA-C History: . R10.9 - Unspecified abdominal pain . Comparison: None. FINDINGS: BOWEL: Nonobstructive bowel gas pattern. ORGANOMEGALY: None. SIGNIFICANT PATHOLOGIC CALCIFICATIONS: None. OTHER: No free air is seen under the diaphragm. IMPRESSION: NO ACUTE ABDOMINAL FINDINGS. Reviewed, dictated and finalized at location A.
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
== END 2024-04-03 15:34 | disposition home or self-care (01) ==
LOC: ANHIMG 15:34
PROVIDERS: PCP Family Medicine; Visit Provider Physician Assistant
DX: R10.9 Unspecified abdominal pain (principal); S69.91XA Unspecified injury of right wrist, hand and finger(s), initial encounter; X58.XXXA Exposure to other specified factors, initial encounter
CPT/HCPCS: 73130; 74019

== ENCOUNTER 2024-06-06 01:03 | Day surgery (SDC) | payer OTHER, SELFPAY ==
[2024-05-27 12:48] VITALS: BMI 26.5
[2024-06-06 10:27] VITALS: BP 105/72; PULSE 74; RESP 18; TEMP 36.8; O2SAT 98
[2024-06-06 10:30] LABS: BEDSIDEPREGUCG Negative (Negative)
--- NOTE | 2024-06-06 10:38 | P.PNAN_ITS ---
Anes - Initial Pre Proc Eval Procedure: Operation Date: 06/06/24 11:30 Proposed Procedures p Colonoscopy - Rigoberto Aguilar MD Date/Time: 06/06/24 10:38 Surgeon: Rigoberto Aguilar MD Pre Op Diagnosis: constipation Patient Data Age: 24 Gender: F Height: 1.78 m Weight: 83.9 kg Last Vital Signs Temp 36.8 C 06/06/24 10:27 Pulse 74 06/06/24 10:27 Resp 18 06/06/24 10:27 BP 105/72 06/06/24 10:27 Pulse Ox 98 06/06/24 10:27 O2 Del Method Room Air 06/06/24 10:27 Allergies Allergy/AdvReac Type Severity Reaction Status Date / Time amphetamine Allergy Severe seizures Verified 06/06/24 10:23 [From Adderall XR] dextroamphetamine Allergy Severe seizures Verified 06/06/24 10:23 [From Adderall XR] Home Medications Medication Instructions Recorded Confirmed Type testosterone cypionate 200 mg/mL 200 mg IM .bi-weekly 06/04/21 06/06/24 History intramuscular oil albuterol sulfate 90 mcg/actuation 1 puff inhalation Q4H PRN 09/01/21 06/06/24 Rx aerosol inhaler (ProAir HFA) shortness of breath or wheezing #8.5 grams sertraline 100 mg tablet 200 mg PO DAILY #180 tabs 10/26/23 06/06/24 Rx lamotrigine 200 mg tablet,extended 200 mg PO BID #180 tabs 11/24/23 06/06/24 Rx release 24 hr trazodone 50 mg tablet 50 mg PO QHS PRN sleep 01/31/24 06/06/24 History Laboratory Tests 06/06/24 10:26 POC Urine HCG, Qual Negative (Negative) Patient hx anesthesia problems: none Family hx anesthesia problems: none Results Review: All pre-operative results and documents have been reviewed as part of the pre- operative evaluation. [facility] Past Medical History Medical History Attention deficit disorder Exercise induced bronchospasm Major depressive disorder, recurrent, moderate MDD (major depressive disorder), single episode Seizure last in october 2022 Tachycardia Surgical History Surgical History S/P tonsillectomy and adenoidectomy Family History Family History Father Diabetes mellitus Hypertension Mixed hyperlipidemia Sibling Patient's brother is in good health Social History Social History Social History: Single Smoking status: Never smoker Second hand tobacco smoke exposure: No Alcohol intake: never Substance use: never Substance use type: does not use Lack of Transportation: No Lack of Food: Never True Current Housing: I Have Housing Concerned About Future Housing: No Difficulty Paying Gas/Electric Bills: No Difficulty Paying for Meds: No Currently Unemployed: No Education: High School Diploma/GED Difficulty w/ Childcare or Family Care: No Living arrangements: with family Occupation/Education: occupation Gender identity (if verbalized by the patient): Transgender Male Sexual Orientation (if Verbalized by the Patient): Lesbian, Dowling, or Homosexual Spiritual care concerns: No Anes - Eval Final PreProcedure Day of Procedure 06/06/24 10:38 Patient weight: overweight Heart: regular rate and rhythm Lungs: clear to auscultation Airway: Mallampati scale class II Neurological: alert and oriented Last oral intake: >/= 8 hours ASA classification: II Emergent: no Anesthetic plan: proceed Anesthesia type and monitoring: general GIVS and standard monitoring Results Review: All pre-operative results and documents have been reviewed as part of the pre- operative evaluation. Informed Consent: The patient's anesthetic plan and its attendant risks and benefits were discussed with the patient/family/POA. Questions were solicited and answers provided to the satisfaction of the patient/family/POA.
[2024-06-06] MEDS: LACTATED RINGERS 1,000 ML 150 ML IV CONT (10:46)
--- NOTE | 2024-06-06 11:33 | PM.IMHP ---
H&P: HPI History of Present Illness Date/Time: 06/06/24 11:33 Chief Complaint: Severe constipation Narrative: this patient is referred by his PCP for severe long-standing constipation. There is no rectal bleeding, abdominal pain or change in bowel habits. Review of Systems Review of Systems: All systems reviewed & are unremarkable except as noted in HPI and below PMFSH Past Medical History Medical History Attention deficit disorder Exercise induced bronchospasm Major depressive disorder, recurrent, moderate MDD (major depressive disorder), single episode Seizure last in october 2022 Tachycardia Surgical History Surgical History S/P tonsillectomy and adenoidectomy Family History Family History Father Diabetes mellitus Hypertension Mixed hyperlipidemia Sibling Patient's brother is in good health Social History Social History Social History: Single Smoking status: Never smoker Second hand tobacco smoke exposure: No Alcohol intake: never Substance use: never Substance use type: does not use Lack of Transportation: No Lack of Food: Never True Current Housing: I Have Housing Concerned About Future Housing: No Difficulty Paying Gas/Electric Bills: No Difficulty Paying for Meds: No Currently Unemployed: No Education: High School Diploma/GED Difficulty w/ Childcare or Family Care: No Living arrangements: with family Occupation/Education: occupation Gender identity (if verbalized by the patient): Transgender Male Sexual Orientation (if Verbalized by the Patient): Lesbian, Dowling, or Homosexual Spiritual care concerns: No Meds Home Medications and Allergies Home Medications Medication Instructions Recorded Confirmed Type testosterone cypionate 200 mg/mL 200 mg IM .bi-weekly 06/04/21 06/06/24 History intramuscular oil albuterol sulfate 90 mcg/actuation 1 puff inhalation Q4H PRN 09/01/21 06/06/24 Rx aerosol inhaler (ProAir HFA) shortness of breath or wheezing #8.5 grams sertraline 100 mg tablet 200 mg PO DAILY #180 tabs 10/26/23 06/06/24 Rx lamotrigine 200 mg tablet,extended 200 mg PO BID #180 tabs 11/24/23 06/06/24 Rx release 24 hr trazodone 50 mg tablet 50 mg PO QHS PRN sleep 01/31/24 06/06/24 History Allergies Allergy/AdvReac Type Severity Reaction Status Date / Time amphetamine Allergy Severe seizures Verified 06/06/24 10:23 [From Adderall XR] dextroamphetamine Allergy Severe seizures Verified 06/06/24 10:23 [From Adderall XR] Vital Signs Vital Signs - 24 hr 06/06/24 10:27 Temperature 98.3 F Pulse Rate 74 Respiratory Rate 18 Blood Pressure 105/72 Pulse Oximetry 98 Oxygen Delivery Room Air Exam Const: General: cooperative and healthy appearing Resp: Effort & Inspection: normal respiratory effort and able to speak in complete sentences Auscultation: clear to auscultation bilaterally Cardio: Rate: regular rate Rhythm: regular rhythm GI: Inspection: normal to inspection GI Palp: No No hepatosplenomegaly present Auscultation: normal bowel sounds Rectal Exam: deferred Skin: General skin exam: normal color Psych: Appearance: grossly normal Mental Status: mental status grossly normal Assessment and Plan Assessment and plan (1) Chronic constipation: Code(s): K59.09 - Other constipation Status: Acute Assessment and Plan: The patient is deemed a good candidate for the procedure. Consent signed. Will proceed.
[2024-06-06 11:55] VITALS: BP 88/46; PULSE 73; RESP 14; O2SAT 97
[2024-06-06 12:05] VITALS: BP 93/53; PULSE 68; RESP 14; O2SAT 100
[2024-06-06 12:15] VITALS: BP 103/67; PULSE 69; RESP 16; O2SAT 100
== END 2024-06-06 12:28 | disposition home or self-care (01) ==
PROVIDERS: Anesthesiology; PCP Family Medicine; Referring Provider Nurse Practitioner Family; Visit Provider Internal Medicine Gastroenterology
PROC: 0DJD8ZZ Inspection of Lower Intestinal Tract, Via Natural or Artificial Opening Endoscopic (ICD-10-PCS; CPT 45378; principal; 2024-06-06 11:30)
DX: K59.09 Other constipation (principal); F33.1 Major depressive disorder, recurrent, moderate; G40.909 Epilepsy, unspecified, not intractable, without status epilepticus; Z79.51 Long term (current) use of inhaled steroids
CPT/HCPCS: 45378; J2003; J2704; J7120